=== PATIENT | male | born 1955 ===

== ENCOUNTER 2017-04-20 15:40 | Emergency (ER) | payer OTHER ==
[2017-04-20 15:40] VITALS: BMI 39.5
[2017-04-20 15:46] VITALS: RESP 16; TEMP 98.2
--- NOTE | 2017-04-20 16:32 | ED PDOC ---
Arrival/HPI - General Chief Complaint: Trauma Time Seen by Provider: 04/20/17 16:31 Historian: Patient - History of Present Illness Narrative History of Present Illness (Text): 04/20/17 16:31 62 y/o male, pmh including htn/dm, nkda, not on any antiplatete or anticoagulant , c/o head/neck and mid back pain s/p slipped and fall. Aching pain, feels headache, no nausea or vomiting, pain when moving the neck, no numbness or tingling, no radiating pain, no palpitation, no chest pain or shortness of breath, no other medical or psychological complaints. Pt. has no urinary or bowel incontinence or retention, no other medical or psychological complaints. Past Medical History - Provider Review Nursing Documentation Reviewed: Yes - Past History Past History: No Previous - Infectious Disease Hx of Infectious Diseases: None - Tetanus Immunization Tetanus Immunization: Unknown - Cardiac Hx Hypertension: Yes - Pulmonary Hx Sleep Apnea: Yes - Endocrine/Metabolic Hx Diabetes Mellitus Type 2: Yes - Musculoskeletal/Rheumatological Hx Back Pain: Yes Hx Gout: Yes Hx Herniated Disk: Yes - Gastrointestinal Other/Comment: Colonoscopy - Psychiatric Hx Depression: Yes Hx Emotional Abuse: No Hx Physical Abuse: No Hx Substance Use: Yes - Past Surgical History Past Surgical History: No Previous - Anesthesia Hx Anesthesia: Yes Hx Anesthesia Reactions: No - Suicidal Assessment Feels Threatened In Home Enviroment: No Family/Social History - Physician Review Nursing Documentation Reviewed: Yes Family/Social History: Unknown Family HX Smoking Status: Never Smoked Hx Alcohol Use: Yes Hx Substance Use: Yes Substance used: MARIJUANA Hx Substance Use Treatment: No Allergies/Home Meds Allergies/Adverse Reactions: Allergies No Known Allergies Allergy (Verified 04/20/17 17:31) Home Medications: Home Meds Medication Instructions Recorded Confirmed Alprazolam [Xanax] 2 mg PO BID 09/25/15 04/20/17 Losartan [Cozaar] 100 mg PO DAILY 09/25/15 04/20/17 Allopurinol [Zyloprim] 300 mg PO DAILY 08/05/16 04/20/17 Folic Acid 1 mg PO DAILY 08/05/16 04/20/17 Metformin HCl [Glucophage] 1,000 mg PO BID 08/05/16 04/20/17 Oxycodone HCl [Roxicodone] 15 mg PO TID 08/05/16 04/20/17 amLODIPine [Norvasc] 10 mg PO DAILY 08/05/16 04/20/17 Review of Systems - Review of Systems Constitutional: absent: Fatigue, Fevers Eyes: absent: Vision Changes ENT: absent: Hearing Changes Respiratory: absent: SOB, Cough Cardiovascular: absent: Chest Pain Gastrointestinal: absent: Abdominal Pain, Nausea, Vomiting Musculoskeletal: Arthralgias, Back Pain, Neck Pain, Myalgias. absent: Joint Swelling Skin: absent: Rash, Pruritis, Skin Lesions Neurological: Headache. absent: Dizziness, Focal Weakness, Gait Changes Physical Exam Vital Signs Reviewed: Yes Vital Signs Temp Pulse Resp BP Pulse Ox 04/20/17 17:04 16 96 04/20/17 15:46 98.2 F 86 16 152/84 H 93 L Temperature: Afebrile Blood Pressure: Normal Pulse: Regular Respiratory Rate: Normal Appearance: Positive for: Well-Appearing, Non-Toxic Pain Distress: Moderate Mental Status: Positive for: Alert and Oriented X 3 - Systems Exam Head: Present: Atraumatic, Normocephalic. No: Tenderness, Contusion, Swelling, Ecchymosis, Abrasion, Laceration, Other Pupils: Present: PERRL Extroacular Muscles: Present: EOMI Conjunctiva: Present: Normal Mouth: Present: Moist Mucous Membranes Neck: Present: Normal Range of Motion, Paraspinal Tenderness (+spasm noted on the bilateral paraspinal muscle region with pain upon lt. lateral movement. ), Trachea Midline. No: Meningeal Signs, MIDLINE TENDERNESS, Lymphadenopathy Respiratory/Chest: Present: Clear to Auscultation, Good Air Exchange. No: Respiratory Distress, Accessory Muscle Use, Wheezes, Decreased Breath Sounds, Rales, Retracting, Rhonchi, Tachypneic, Tender to Palpation, Other Cardiovascular: Present: Regular Rate and Rhythm, Normal S1, S2. No: Murmurs Abdomen: Present: Normal Bowel Sounds. No: Tenderness, Distention, Peritoneal Signs, Rebound, Guarding Back: Present: Normal Inspection, Other (Thoracic to LS spine: +ttp on the upper thoracic bilateral paraspinal, lumbarsacral spine with no tenderness or step off, no rash or ecchymosis, FROM without limtiation, sensation intact, motor 5/5, no saddling gait. ). No: CVA Tenderness, Midline Tenderness, Pain with Leg Raise Upper Extremity: Present: Normal Inspection, Capillary Refill < 2s. No: Cyanosis, Edema, Deformity Lower Extremity: Present: Normal Inspection, Normal ROM. No: Edema, Deformity Neurological: Present: GCS=15, Speech Normal, Motor Func Grossly Intact, Gait Normal, Memory Normal Skin: Present: Warm, Dry, Normal Color. No: Rashes Psychiatric: Present: Alert, Oriented x 3, Normal Insight, Normal Concentration Medical Decision Making ED Course and Treatment: 04/20/17 16:47 -CT head/neck/thoracic -percocet/zofran -observe and reassess 04/20/17 18:47 -CT head/cervical/thoracic: show no acute traumatic findings but there is degenerative changes. -Pain improved, vitally stable, will discharge home. -Discharge home with mobic, lidoderm patch, heat compression, follow up with your own pmd and pain management within 2 days, return to the ER for any new or worsening signs or symptoms. - RAD Interpretation Radiology Orders: 04/20/17 16:41 CERVICAL SPINE W/O CONTRAST [CT] Stat HEAD W/O CONTRAST [CT] Stat THORACIC SPINE W/O CONT [CT] Stat CT Head: IMPRESSION: No acute intracranial pathology identified. CT Cervical: IMPRESSION: Multilevel degenerative change. No acute abnormalities. No significant interval change compared to the prior examination(s). CT Thoracic: IMPRESSION: No acute findings related to/accounting for the clinical presentation. Moderate multilevel degenerative change. Electrical Continuity Tester: Radiologist - Medication Orders Current Medication Orders: Discontinued Medications Ondansetron HCl (Zofran Odt) 4 mg PO STAT STA Stop: 04/20/17 16:42 Last Admin: 04/20/17 17:29 Dose: 4 mg Oxycodone/Acetaminophen (Percocet 5/325 Mg Tab) 1 tab PO STAT STA Stop: 04/20/17 16:42 Last Admin: 04/20/17 17:28 Dose: 1 tab - PA / HISTOLOGY MANAGER / Resident Statement / has reviewed & agrees with the documentation as recorded. Disposition/Present on Arrival - Present on Arrival Any Indicators Present on Arrival: No History of DVT/PE: No History of Uncontrolled Diabetes: No Urinary Catheter: No History of Decub. Ulcer: No History Surgical Site Infection Following: None - Disposition Have Diagnosis and Disposition been Completed?: Yes Diagnosis: Accidental fall, Neck pain, Back pain, Headache, Degenerative joint disease Disposition: HOME/ ROUTINE Disposition Time: 16:48 Patient Plan: Discharge Patient Problems: Current Active Problems Problem Status Onset Accidental fall Acute Neck pain Acute Back pain Acute Headache Acute Condition: IMPROVED Additional Instructions: -Discharge home with mobic, lidoderm patch, heat compression, follow up with your own pmd and pain management within 2 days, return to the ER for any new or worsening signs or symptoms. Prescriptions: Lidocaine 5% [Lidoderm] 1 patch TOP DAILY PRN #10 patch PRN Reason: Other Meloxicam [Mobic] 15 mg PO DAILY PRN #10 tab PRN Reason: Other Referrals: Sophia Faith DO [Primary Care Provider] - Follow up with primary Forms: [facility] (Pashto), WORK NOTE
[2017-04-20] MEDS ORDERED: Oxycodone/Acetaminophen 5/325 mg Tab PO STA (16:41)
--- NOTE | 2017-04-20 18:00 | CT ---
PROCEDURE: CT HEAD WITHOUT CONTRAST. HISTORY: fall, injury COMPARISON: None available. TECHNIQUE: Axial computed tomography images were obtained through the head/brain without intravenous contrast. Radiation dose: Total exam DLP = 896.45 mGy-cm. This CT exam was performed using one or more of the following dose reduction techniques: Automated exposure control, adjustment of the mA and/or kV according to patient size, and/or use of iterative reconstruction technique. FINDINGS: HEMORRHAGE: No intracranial hemorrhage. BRAIN: No mass effect or edema. The hilliard-white matter differentiation appears intact. Please note that MRI with diffusion imaging is more sensitive in the detection of acute ischemic event. VENTRICLES: No hydrocephalus. CALVARIUM: Unremarkable. PARANASAL SINUSES: Unremarkable as visualized. No significant inflammatory changes. MASTOID AIR CELLS: Unremarkable as visualized. No inflammatory changes. OTHER FINDINGS: None. IMPRESSION: No acute intracranial pathology identified.
--- NOTE | 2017-04-20 18:10 | CT ---
PROCEDURE: CT Cervical Spine without contrast HISTORY: Trauma/fall COMPARISON: 09/25/2013 TECHNIQUE: Axial computed tomography images were obtained of the cervical spine without the use of intravenous contrast. Coronal and sagittal reformatted images were created and reviewed. Radiation dose: Total exam DLP = 867.82 mGy-cm. This CT exam was performed using one or more of the following dose reduction techniques: Automated exposure control, adjustment of the mA and/or kV according to patient size, and/or use of iterative reconstruction technique. FINDINGS: VERTEBRAE: No fracture. Normal alignment. No destructive bony lesion. DISCS/SPINAL CANAL/NEURAL FORAMINA: Multilevel degenerative change similar to that seen previously without new/ acute or superimposed abnormalities. Disc space narrowing from C2-3 through C6-7. PARASPINAL SOFT TISSUES: Unremarkable. OTHER FINDINGS: None. IMPRESSION: Multilevel degenerative change. No acute abnormalities. No significant interval change compared to the prior examination(s).
--- NOTE | 2017-04-20 18:14 | CT ---
PROCEDURE: CT Thoracic Spine without contrast HISTORY: fall, injury COMPARISON: None. TECHNIQUE: Axial computed tomography images were obtained of the thoracic spine without intravenous contrast. Coronal and sagittal reformatted images were created and reviewed. Radiation dose: Total exam DLP = 1262.25 mGy-cm. This CT exam was performed using one or more of the following dose reduction techniques: Automated exposure control, adjustment of the mA and/or kV according to patient size, and/or use of iterative reconstruction technique. FINDINGS: VERTEBRAE: Unremarkable. No fracture. Normal alignment. DISCS/SPINAL CANAL/NEURAL FORAMINA: Multilevel non marginal osteophyte formation primarily upper mid. PARASPINAL SOFT TISSUES: Unremarkable. OTHER FINDINGS: Unremarkable. IMPRESSION: No acute findings related to/accounting for the clinical presentation. Moderate multilevel degenerative change.
[2017-04-20 19:05] VITALS: BP 140/79; PULSE 87; O2SAT 98
== END 2017-04-20 19:08 | disposition home or self-care (01) ==
LOC: ED 15:40
DX: M54.9 Dorsalgia, unspecified (principal); M54.2 Cervicalgia; R51 Headache; M19.90 Unspecified osteoarthritis, unspecified site